=== PATIENT | female | born 1955 | race Caucasian/White ===

== ENCOUNTER 2023-01-30 08:07 | Emergency (ER) | payer MEDICARE, SELFPAY ==
[2023-01-30 08:18] VITALS: BP 139/73; PULSE 90; RESP 18; TEMP 37.2; O2SAT 93
--- NOTE | 2023-01-30 08:48 | ED.GENADULT ---
HPI - General Adult General Chief complaint: Upper Respiratory Infection Stated complaint: sinus/fatigue/queazy Source: patient Mode of arrival: ambulatory Limitations: no limitations History of Present Illness HPI narrative: Patient presents for evaluation of sick symptoms for last 2 days. Symptoms include sinus congestion, headache, generalized body aches, fever, chills and nausea. She denies sore throat, vomiting, diarrhea, cough and shortness of breath. She has been taking Zicam and claritin for her symptoms. Her recently had similar symptoms but attributed them to allergies. She does not smoke. No personal history of COVID. Related Data Home Medications Medication Instructions Recorded Confirmed tolterodine 4 mg capsule,extended mg PO 01/30/23 release 24 hr Allergies Allergy/AdvReac Type Severity Reaction Status Date / Time rosuvastatin Allergy Other Verified 01/30/23 08:32 Review of Systems Review of Systems: CONSTITUTIONAL: Reports fever and chills. EYES: Denies visual changes, redness, or discharge. ENT: Reports sinus congestion and ear fullness. Denies sore throat. CARDIOVASCULAR: Denies chest pain, palpitations, or edema. RESPIRATORY: Denies cough or dyspnea. GASTROINTESTINAL: Reports nausea. denies abdominal pain, vomiting, or diarrhea. GENITOURINARY: Denies dysuria or hematuria. SKIN: Denies rash or itching. MUSCULOSKELETAL: Reports generalized body aches NEUROLOGIC: Reports headache. Denies numbness, dizziness, or weakness. PSYCHIATRIC: Denies anxiety or depression. PMFSH Past Medical History Medical History Breast cancer Hyperlipidemia Surgical History Surgical History History of hysterectomy History of mastectomy Family History Family History Mother Family history non-contributory Social History Social History Smoking status: Never smoker Substance use: never Living arrangements: with family Gender identity (if verbalized by the patient): Female Sexual Orientation (if Verbalized by the Patient): Straight or Heterosexual Exam Narrative: GENERAL: Well-appearing, well-nourished, and in no acute distress. HEAD: Normocephalic, atraumatic. EYES: PERRLA and EOMI. ENT: Nares clear, no rhinorrhea or epistaxis. Mucous membranes moist. Oropharynx without tonsillar hypertrophy exudate or other lesions. Bilateral TMs pearly valverde nonbulging NECK: Supple. No adenopathy or masses. No carotid bruits or JVD CHEST: Clear to auscultation. No respiratory distress. No wheezes rales or rhonchi HEART: Regular rate and rhythm. No murmur heard. Normal peripheral pulses. ABDOMEN: Soft, nontender, nondistended, normal active bowel sounds. EXTREMITIES: Normal range of motion. No edema. SKIN: Warm, dry, no rash. NEURO: No focal deficits. Alert and oriented x3. PSYCH: Normal mood and affect. Course Course Emergency Course: This is a 67-year-old female who presented for evaluation of sick symptoms. Strep and influenza negative. COVID positive. Through shared decision making opted not to use Paxlovid due to potential for drug to drug interactions and potential for rebound. Will discharge with Zofran. Increase hydration. [id number] agents for symptom management. Follow up with primary provider. Quarantine in alignment with CDC recommendations. Go to the emergency department for worsening symptoms. Patient in agreement with plan of care Level of Care: Express Care Visit Vital Signs Vital signs: Vital Signs Temperature 37.2 C 01/30/23 08:18 Pulse Rate 90 01/30/23 08:18 Respiratory Rate 18 01/30/23 08:18 Blood Pressure 139/73 01/30/23 08:18 Pulse Oximetry 93 01/30/23 08:18 Oxygen Delivery Room Air
== END 2023-01-30 08:43 | disposition home or self-care (01) ==
PROVIDERS: Emergency Provider Nurse Practitioner
DX: U07.1 COVID-19 (principal); E78.5 Hyperlipidemia, unspecified; Z85.3 Personal history of malignant neoplasm of breast; Z90.10 Acquired absence of unspecified breast and nipple
CPT/HCPCS: 87081; 87426; 87804; 87880; 99213; C9803; G0463

== ENCOUNTER 2023-04-23 09:17 | Emergency (ER) | payer MEDICARE, SELFPAY ==
[2023-04-23 09:23] VITALS: BP 152/85; PULSE 85; RESP 16; TEMP 37.3; O2SAT 96
--- NOTE | 2023-04-23 09:29 | ED.URI ---
HPI - URI/Sore Throat General Chief Complaint: Upper Respiratory Infection Stated Complaint: head cold/drainage/throat Time Seen by Provider: 04/23/23 09:43 Source: patient and RN notes reviewed Mode of arrival: ambulatory Limitations: no limitations History of Present Illness HPI Narrative: 67-year-old female presents with concern for 4 day history of sore throat, postnasal drainage, mild cough. She denies fever, aches, chills, sweats. She has tried a couple [id number] medications without relief. She had COVID several weeks ago MD elicited complaint: cough and sore throat Related Data Home Medications Medication Instructions Recorded Confirmed tolterodine 4 mg capsule,extended mg PO 01/30/23 release 24 hr Allergies Allergy/AdvReac Type Severity Reaction Status Date / Time rosuvastatin Allergy Other Verified 01/30/23 08:32 Review of Systems Review of Systems: CONSTITUTIONAL: Denies malaise, chills, sweats, or fever. EYES: Denies visual changes, redness, or discharge. ENT: Reports rhinorrhea, congestion, and sore throat. CARDIOVASCULAR: Denies chest pain, palpitations, or edema. RESPIRATORY: Reports cough. Denies dyspnea. GASTROINTESTINAL: Denies abdominal pain, nausea, vomiting, diarrhea SKIN: Denies rash or itching. MUSCULOSKELETAL: Denies myalgia. NEUROLOGIC: Denies headache. All systems reviewed & are unremarkable except as noted in HPI and below PMFSH Past Medical History Medical History (Updated 04/23/23 @ 09:49 by Latasha Cheek NP) Breast cancer Hyperlipidemia Surgical History Surgical History History of hysterectomy History of mastectomy Family History Family History Mother Family history non-contributory Social History Social History (Updated 01/30/23 @ 08:53 by Michael Farnsworth, [facility], ) Smoking status: Never smoker Substance use: never Living arrangements: with family Gender identity (if verbalized by the patient): Female Sexual Orientation (if Verbalized by the Patient): Straight or Heterosexual Comments At time of signature, agree with nursing past medical, surgical, social and family history. There is no relevant family history pertinent to the presenting complaint Exam Narrative: GENERAL: Well-appearing, well-nourished, and in no acute distress. HEAD: Normocephalic EYES: PERRLA, conjunctivae clear ENT: Nares clear, turbinates edematous and erythematous, clear discharge. Mucous membranes moist. TM pearly valverde with sharp light reflex bilaterally; no tragal tenderness. Oropharynx not erythematous without lesions. Tonsils not enlarged and without exudate, no drooling, no hoarseness, no trismus, uvula midline. NECK: Supple. No lymphadenopathy CHEST: Clear to auscultation, breath sounds equal. No wheezing, rhonchi, rales, or stridor. No respiratory distress, speaks in full sentences. HEART: Regular rate and rhythm. No murmur heard. SKIN: Warm, dry, no rash. NEURO: Alert and oriented x3. PSYCH: Normal mood and affect Course Course Emergency Course: Patient is aware of diagnosis, understands and agrees to treatment plan. Anticipatory guidance given. Patient agrees to follow-up as directed and is aware of reasons to seek care at the emergency department. Portions of this record may have been created with voice recognition software Level of Care: Express Care Visit Vital Signs Vital signs: Vital Signs Temperature 99.1 F 04/23/23 09:23 Pulse Rate 85 04/23/23 09:23 Respiratory Rate 16 04/23/23 09:23 Blood Pressure 152/85 H 04/23/23 09:23 Pulse Oximetry 96 04/23/23 09:23 Oxygen Delivery Room Air 04/23/23 09:23 Temperature 99.1 F 04/23/23 09:23 Pulse Rate 85 04/23/23 09:23 Respiratory Rate 16 04/23/23 09:23 Blood Pressure 152/85 H 04/23/23 09:23 Pulse Oximetry 96 04/23/23 09:23 Oxygen Delive
== END 2023-04-23 09:57 | disposition home or self-care (01) ==
PROVIDERS: Emergency Provider Nurse Practitioner
DX: J06.9 Acute upper respiratory infection, unspecified (principal); E78.5 Hyperlipidemia, unspecified; Z85.3 Personal history of malignant neoplasm of breast; Z90.10 Acquired absence of unspecified breast and nipple
CPT/HCPCS: 87081; 87880; 99213; G0463

== ENCOUNTER 2023-11-09 11:45 | Emergency (ER) | payer MEDICARE, SELFPAY ==
[2023-11-09 11:54] VITALS: BP 159/59; PULSE 75; RESP 16; TEMP 37.1; O2SAT 98
--- NOTE | 2023-11-09 12:54 | ED.GENADULT ---
HPI - General Adult General Chief complaint: Upper Respiratory Infection Stated complaint: sinus infection/throat Source: patient Mode of arrival: ambulatory Limitations: no limitations History of Present Illness HPI narrative: Patient presents for evaluation of sinus symptoms for the past three weeks. Since symptoms include sinus congestion, frontal, and maxillary sinus pain. She reports a headache that she describes as ?pressure?, without numerical rating. She has experience some low-grade fever and chills. No nausea, vomiting, diarrhea. She does have a sore throat as of today. She has tried a nasal spray, mucous-relief medication and application of warm moist heat to her sinuses. She has mild improvement in her symptoms. Recent sick contacts. She does not smoke. Related Data Home Medications Medication Instructions Recorded Confirmed cholecalciferol (vitamin D3) 25 50 mcg PO DAILY 11/09/23 11/09/23 mcg (1,000 unit) tablet (Vitamin D3) denosumab 60 mg/mL subcutaneous 60 mg subcut [id number] 11/09/23 11/09/23 syringe (Prolia) diphenhydramine HCl 25 mg capsule 25 mg PO HS PRN Allergy Symptoms 11/09/23 11/09/23 (Benadryl) evening primrose oil 500 mg capsule 1,000 mg PO HS 11/09/23 11/09/23 fluticasone propionate 50 1 spray intranasal DAILY PRN 11/09/23 11/09/23 mcg/actuation nasal Allergy Symptoms spray,suspension glucosamine-chondroitin 2,000 30 ml PO DAILY 11/09/23 11/09/23 mg-1,200 mg/30 mL oral liquid multivitamin with calcium carb and 1 tablet PO DAILY 11/09/23 11/09/23 iron tablet omega-3 fatty acids-fish oil 684 1 cap PO DAILY 11/09/23 11/09/23 mg-1,200 mg capsule,delayed release rosuvastatin 5 mg tablet 5 mg PO DAILY 11/09/23 11/09/23 tolterodine 4 mg capsule,extended 4 mg PO DAILY 11/09/23 11/09/23 release 24 hr (Detrol LA) Allergies Allergy/AdvReac Type Severity Reaction Status Date / Time anastrozole [From Arimidex] Allergy Joint Pain Verified 11/09/23 12:34 atorvastatin [From Lipitor] Allergy Muscle Verified 11/09/23 12:34 Spasms cetirizine [From Zyrtec] Allergy Drowsy Verified 11/09/23 12:34 clindamycin Allergy Joint Pain Verified 11/09/23 12:34 ibandronate sodium Allergy Swelling Verified 11/09/23 12:34 [From Boniva] of Lip/Tongue/Throat lovastatin Allergy Muscle Verified 11/09/23 12:34 Spasms prednisone Allergy Hallucinati Verified 11/09/23 12:34 ng prochlorperazine Allergy Other Verified 11/09/23 12:29 [From Compazine] risedronate sodium Allergy Nausea and Verified 11/09/23 12:34 [From Actonel] Vomiting rosuvastatin Allergy Other Verified 01/30/23 08:32 Review of Systems Review of Systems: CONSTITUTIONAL: Reports low-grade fever and chills EYES: Denies visual changes, redness, or discharge. ENT: Reports frontal and bilaterally maxillary sinus pain. Report clear nasal drainage CARDIOVASCULAR: Denies chest pain, palpitations, or edema. RESPIRATORY: Denies cough or dyspnea. GASTROINTESTINAL: Denies abdominal pain, nausea, vomiting, or diarrhea. GENITOURINARY: Denies dysuria or hematuria. SKIN: Denies rash or itching. MUSCULOSKELETAL: Denies back pain, joint pain, or myalgia. NEUROLOGIC: Reports headache. Denies numbness, dizziness, or weakness. PSYCHIATRIC: Denies anxiety or depression. [facility] Past Medical History Medical History Breast cancer Hyperlipidemia Surgical History Surgical History History of hysterectomy History of mastectomy Family History Family History Mother Family history non-contributory Social History Social History Smoking status: Never smoker Substance use: never Living arrangements: with family Gender identity (if verbalized by the patient): Female
== END 2023-11-09 12:20 | disposition home or self-care (01) ==
PROVIDERS: Emergency Provider Nurse Practitioner
DX: J32.9 Chronic sinusitis, unspecified (principal); E78.5 Hyperlipidemia, unspecified; Z85.3 Personal history of malignant neoplasm of breast; Z90.10 Acquired absence of unspecified breast and nipple
CPT/HCPCS: 99213; G0463

== ENCOUNTER 2023-12-22 07:20 | Outpatient (CLI) | payer MEDICARE, SELFPAY ==
--- NOTE | ~2023-12-22 | US_ITS ---
EXAMINATION: US carotid duplex BI DATE: 12/22/2023 08:05 INDICATION: Systolic murmur TECHNIQUE: Grayscale, color Doppler, and pulsed Doppler images of the cervical carotid arteries were obtained. The degree of vessel stenosis is placed in one of the following categories: normal, <50%, 5 0-69%, >=70% but less than near-occlusion, near-occlusion, or total occlusion. Note that percent sten osis relative to normal distal artery lumen diameter is indirectly measured from velocity measurement s as described by Bowen, et al. Radiology 2003; 229:340-346. Notes: Normal: Peak systolic velocity <125 centimeters/sec and no plaque <50%. Peak systolic velocity <125 ( EDV <40; ICA/CCA PSV ratio <2.0; used these factors only a tandem lesions or low cardiac output or co ntralateral disease) 50-69 %: PSV 125-230 (EDV 40-100; ratio 2-4) >= 70% but less than near occlusion: PSV greater than 230 (EDV > 100; ratio> 4.0) Near Occlusion: PSV that is variable; markedly narrowed lumen Occlusion: Absent flow on color/spectral Doppler and no lumen on valverde scale. COMPARISON: None. FINDINGS: RIGHT: The right common carotid artery (CCA) peak systolic velocity (PSV) is 97 cm/s. The right internal car otid artery (ICA) PSV is 69 cm/s. The right ICA end-diastolic velocity (EDV) is 21 cm/s. The right IC A/CCA PSV ratio is 0.71. The external carotid artery (ECA) PSV is 76 cm/s. There is antegrade flow in the right vertebral artery. LEFT: The left CCA PSV is 103 cm/s. The left ICA PSV is 65 cm/s. The left ICA EDV is 21 cm/s. The left ICA/ CCA PSV ratio is 0.63. The ECA PSV is 61 cm/s. There is antegrade flow in the left vertebral artery. IMPRESSION: 1. Less than 50% stenosis in the right internal carotid artery by sonographic criteria. 2. Less than 50% stenosis in the left internal carotid artery by sonographic criteria. Reviewed, dictated and finalized at location B. IMPRESSION: 1. Less than 50% stenosis in the right internal carotid artery by sonographic karolyn holloway. 2. Less than 50% stenosis in the left internal carotid artery by sonographic maddie pelayo.
[2023-12-22 07:56] LABS: Add Urine Microscopic? NO; Appearance Urine Clear (Clear); Basophils Absolute Auto 0.02 K/mm3 (0.00-0.10); Basophils Percent Auto 0.3 % (0.0-1.0); Bilirubin Urine Negative (Negative); Blood Urine Negative (Negative); Color Urine Yellow (Yellow); Eosinophils Absolute Auto 0.16 K/mm3 (0.02-0.50); Eosinophils Percent Auto 2.7 % (1.0-6.0); Glucose Urine UA Negative (Negative); Hematocrit 42.7 % (35.0-42.0); Hemoglobin 13.8 g/dL (11.7-13.8); Immature Granulocyte Absolute 0.01 K/mm3 (0.00-0.00); Immature Granulocyte Percent A 0.2 % (0.0-0.0); Ketones Urine Negative (Negative); Leukocyte Esterase Ur Negative (Negative); Lymphocytes Percent Auto 30.6 % (18.0-42.0); Mean Corpuscular HGB Conc 32.3 g/dL (32-36); Mean Corpuscular Hemoglobin 29.7 pg (27.0-31.0); Mean Corpuscular Volume 91.8 fL (78.0-102.0); Mean Platelet Volume 8.8 fl (9.2-11.8); Monocytes Absolute Auto 0.57 K/mm3 (0.10-0.90); Monocytes Percent Auto 9.7 % (2.0-11.0); Neutrophils Absolute Auto 3.32 K/mm3 (1.70-7.20); Neutrophils Percent Auto 56.5 % (50.0-70.0); Nitrate Urine Negative (Negative); Platelet Count Result 250 K/mm3 (150-420); Protein Urine Negative (Negative); Red Blood Count 4.65 M/mm3 (4.20-5.40); Red Cell Distribution Width 12.8 % (11.6-14.4); Urobilinogen Urine 0.2 mg/dL (0.2-1.0); White Blood Count 5.9 K/mm3 (4.8-10.8)
--- NOTE | 2023-12-22 08:01 | ECG_ITS ---
Test Date: 2023-12-22 08:10:37 Measurements Intervals [place] Rate: 62 P: 69 DE: 153 QRS: 74 QRSD: 87 T: 74 QT: 371 QTc: 379 Interpretive Statements SINUS RHYTHM NORMAL ELECTROCARDIOGRAM No previous ECG available for comparison Electronically Signed On 12-23-2023 13:31:18 CDT by Terrence Berrios M.D.
[2023-12-22 08:55] LABS: Alanine Aminotransferase 33 U/L (14-59); Albumin Level 3.8 g/dL (3.4-5.0); Alkaline Phosphatase 79 U/L (46-116); Anion Gap 8 mmol/L (4-12); Aspartate Amino Transferase 25 U/L (15-37); Bilirubin,Total 0.3 mg/dL (0.00-1.00); Blood Urea Nitrogen 21 mg/dL (7-18); Calcium 8.9 mg/dL (8.5-10.1); Carbon Dioxide 33 mmol/L (21-32); Chloride 101 mmol/L (98-108); Cholesterol 201 mg/dL (0-200); Estimated Glomerular Filt Rate > 60; Free T3 2.76 pg/mL (2.18-3.98); Free T4 Free Thyroxine 0.94 ng/dL (0.76-1.46); Glucose 88 mg/dL (70-99); HDL Direct 46 mg/dL (40-60); LDL Cholesterol Calculated 126 mg/dL (<130); Osmolality Calculated 296 mOsm/kg (285-295); Potassium 4.1 mmol/L (3.5-5.1); Sodium 142 mmol/L (136-145); Thyroid Stimulating Hormone 3.06 uIU/mL (0.36-3.74); Total Protein 6.8 g/dL (6.4-8.2); Triglycerides 143 mg/dL (0-150)
[2023-12-22 08:57] LABS: CRP < 0.5 mg/dL (0.0-0.9)
[2023-12-25 15:19] LABS: Methylmalonic Acid 190 nmol/L (69-390)
== END 2023-12-22 07:21 | disposition home or self-care (01) ==
LOC: CHSIMG 07:22
PROVIDERS: PCP Internal Medicine; Visit Provider Internal Medicine
DX: E78.5 Hyperlipidemia, unspecified (principal); R01.1 Cardiac murmur, unspecified; R09.89 Other specified symptoms and signs involving the circulatory and respiratory systems; R41.3 Other amnesia; I65.23 Occlusion and stenosis of bilateral carotid arteries
CPT/HCPCS: 36415; 80053; 80061; 81003; 83921; 84439; 84443; 84481; 85025; 86140; 93005; 93880

== ENCOUNTER 2024-01-13 14:37 | Outpatient (CLI) | payer MEDICARE, SELFPAY ==
--- NOTE | 2024-01-13 14:46 | ECHO_ITS ---
Patient Info Name: Elba Wilburn Age: 68 years : 1955 Gender: Female Ht: 66 in Wt: 173 lbs BSA: 1.93 m2 HR: 65 bpm BP: 160 / 79 mmHg Heart Rhythm: Sinus Rhythm Technical Quality: Good Exam Date: 01/13/2024 2:49 PM Exam Location: [facility] Patient Status: Outpatient Admit Date: 01/13/2024 Staff Ordering Physician: Jt Mae MD Security Screener: Arvin Carter RDCS Attending Provider: Jt Mae MD Exam Type: CA echo doppler color flow Study Info Indications - systolic murmur Complete two-dimensional, color flow and Doppler transthoracic echocardiogram is performed. Summary 1. Complete two-dimensional, color flow and Doppler transthoracic echocardiogram is performed. 2. Left ventricular chamber dimension is normal. 3. Left ventricular systolic function is normal, estimated at 60-65%. 4. The left ventricular diastolic function is grade I diastolic dysfunction. 5. E/e' 7 is not elevated. 6. Left atrial chamber dimension is mildly enlarged. 7. There is mild aortic valve sclerosis. 8. There is trace mitral valve regurgitation. 9. There is mild tricuspid valve regurgitation. 10. No pulmonary hypertension, estimated pulmonary arterial systolic pressure is 26 mmHg. Left Ventricle E/e' 7 is not elevated. Left ventricular chamber dimension is normal. Left ventricular systolic function is normal, estimated at 60-65%. The left ventricular diastolic function is grade I diastolic dysfunction. Right Ventricle Right ventricular chamber dimension is normal. Right ventricular systolic function is normal. Left Atria Left atrial chamber dimension is mildly enlarged. Right Atria Right atrial chamber dimension is normal. Aortic Valve The aortic valve is trileaflet. There is mild aortic valve sclerosis. There is no aortic valve stenosis. There is no aortic valve regurgitation. Pulmonic Valve There is no pulmonic regurgitation. Mitral Valve There is no mitral valve stenosis. There is trace mitral valve regurgitation. Tricuspid Valve There is mild tricuspid valve regurgitation. No pulmonary hypertension, estimated pulmonary arterial systolic pressure is 26 mmHg. Pericardium/Pleural There is no pericardial effusion. Inferior Vena Cava Normal inferior vena cava with >50% collapse upon inspiration consistent with normal right atrial pressure, 5 mmHg. Aorta The aortic root size at the sinus of Valsalva is normal. Left Ventricular Outflow Tract Name Value Normal LVOT 2D LVOT Diameter 1.9 cm LVOT Doppler LVOT Peak Velocity 127 cm/s LVOT Peak Gradient 6 mmHg LVOT Mean Gradient 4 mmHg LVOT VTI 31 cm LVOT VTI/AV VTI Ratio 1.0 LVOT Stroke Volume 86 ml Pulmonic Valve Name Value Normal PV Doppler PV Peak Velocity 91 cm/s PV Peak Gradi
== END 2024-01-13 14:38 | disposition home or self-care (01) ==
LOC: CHSIMG 14:40
PROVIDERS: PCP Internal Medicine; Visit Provider Internal Medicine
DX: R01.1 Cardiac murmur, unspecified (principal); I65.23 Occlusion and stenosis of bilateral carotid arteries; I08.2 Rheumatic disorders of both aortic and tricuspid valves
CPT/HCPCS: 93306